=== PATIENT | male | born 1955 | race Caucasian/White ===

== ENCOUNTER → 2017-01-24 | Outpatient (CLI) | payer BC ==
[2014-07-04 12:50] VITALS: BP 137/76
[~2017-01-24] MED LIST: ASPI325T8 PO; CLOP75TA57 PO; DILT240C4 PO; DOXY100T PO; HYDR4TAB45 PO; MORP45CP4 PO; OXYC-323 PO; PRED2.5T PO
--- NOTE | 2017-01-24 17:00 | RAD ---
Left lower extremity arterial ultrasound, 01/24/2017: History: Foot pain, peripheral vascular disease Duplex evaluation of the major arteries in the left lower extremity was performed including grayscale, color-flow and spectral Doppler analysis. The left common femoral artery demonstrates a biphasic Doppler waveform. There is mild atherosclerotic plaquing. The patient's cowlitz superficial femoral artery is occluded in the upper thigh. There is a patent femoral-popliteal graft there is biphasic and triphasic blood flow within the graft. The left popliteal artery demonstrates good triphasic blood flow. There are mild to moderate scattered atherosclerotic plaques in the lower leg arteries. Patent posterior tibial, peroneal and anterior tibial arteries are present demonstrating triphasic Doppler waveforms. There is a mild velocity acceleration in the left anterior tibial artery up to 120 cm/s suggesting moderate narrowing of that vessel. The left dorsalis pedis demonstrates good triphasic Doppler blood flow. IMPRESSION: 1. Occlusion of the left superficial femoral artery. 2. Patent left femoral-popliteal graft providing good triphasic blood flow to the left lower leg and foot.
== END | disposition home or self-care (01) ==
LOC: US 14:55
PROVIDERS: ATTEND Family Medicine
DX: I73.9 Peripheral vascular disease, unspecified (principal); M79.672 Pain in left foot; I74.8 Embolism and thrombosis of other arteries; I70.8 Atherosclerosis of other arteries
CPT/HCPCS: 93926

== ENCOUNTER → 2017-05-08 | Outpatient (CLI) | payer BC ==
[2014-07-04 12:50] VITALS: BP 137/76
== END | disposition home or self-care (01) ==
LOC: PMGWOUND 10:29
PROVIDERS: ATTEND Emergency Medicine Undersea and Hyperbaric Medicine
DX: I70.235 Atherosclerosis of native arteries of right leg with ulceration of other part of foot (principal); L97.522 Non-pressure chronic ulcer of other part of left foot with fat layer exposed; I48.91 Unspecified atrial fibrillation; M86.8X7 Other osteomyelitis, ankle and foot; F17.210 Nicotine dependence, cigarettes, uncomplicated
CPT/HCPCS: 87205; 97597

== ENCOUNTER → 2017-05-21 | Outpatient (CLI) | payer BC ==
[2014-07-04 12:50] VITALS: BP 137/76
== END | disposition home or self-care (01) ==
LOC: PMGWOUND 09:30
PROVIDERS: ATTEND Preventive Medicine Undersea and Hyperbaric Medicine
DX: I70.235 Atherosclerosis of native arteries of right leg with ulceration of other part of foot (principal); L97.522 Non-pressure chronic ulcer of other part of left foot with fat layer exposed; I48.91 Unspecified atrial fibrillation; F17.210 Nicotine dependence, cigarettes, uncomplicated; M86.8X7 Other osteomyelitis, ankle and foot; Z89.422 Acquired absence of other left toe(s)
CPT/HCPCS: 11042

== ENCOUNTER → 2017-05-27 | Outpatient (CLI) | payer BC ==
[2014-07-04 12:50] VITALS: BP 137/76
[~2017-05-27] MED LIST changes: +GADOBUTROL 7.5 MMOL/7.5 ML VIAL IV ONE
--- NOTE | 2017-05-27 16:23 | KCIC ---
MR of the left foot with and without contrast HISTORY: Nonhealing wound at the lateral plantar surface of the fifth digit. TECHNIQUE: Routine multiplanar sequences before and after intravenous contrast. COMPARISON: January 17, 2017. FINDINGS: Mild generalized soft tissue edema of the visualized foot, greatest dorsally. No evidence of organized fluid collection or drainable abscess. No evidence of aggressive bone destruction or acute osteomyelitis. No evidence of acute fracture. No significant joint effusion. The tendons are intact. No significant tendon sheath fluid. Lisfranc ligament complex is intact as is tarsometatarsal alignment. IMPRESSION: No evidence of acute osteomyelitis or drainable abscess. Electronically signed by: Eduar Hathaway MD (05/27/2017 4:20 PM) [facility]
== END | disposition home or self-care (01) ==
LOC: KCIC MRI 15:05
PROVIDERS: ATTEND Emergency Medicine Undersea and Hyperbaric Medicine
DX: S91.302A Unspecified open wound, left foot, initial encounter (principal); R60.0 Localized edema; Z79.01 Long term (current) use of anticoagulants; Z87.891 Personal history of nicotine dependence; X58.XXXA Exposure to other specified factors, initial encounter; Y93.89 Activity, other specified; Y92.89 Other specified places as the place of occurrence of the external cause; Y99.8 Other external cause status
CPT/HCPCS: 73720

== ENCOUNTER → 2017-05-28 | Outpatient (CLI) | payer BC ==
[2014-07-04 12:50] VITALS: BP 137/76
[~2017-05-28] MED LIST changes: -GADOBUTROL 7.5 MMOL/7.5 ML VIAL IV ONE
== END | disposition home or self-care (01) ==
LOC: PMGWOUND 09:34
PROVIDERS: ATTEND Preventive Medicine Undersea and Hyperbaric Medicine
DX: I70.235 Atherosclerosis of native arteries of right leg with ulceration of other part of foot (principal); L97.522 Non-pressure chronic ulcer of other part of left foot with fat layer exposed; I48.91 Unspecified atrial fibrillation; F17.210 Nicotine dependence, cigarettes, uncomplicated; M86.68 Other chronic osteomyelitis, other site; Z89.422 Acquired absence of other left toe(s)
CPT/HCPCS: 99214

== ENCOUNTER → 2017-06-04 | Outpatient (CLI) | payer BC ==
[2014-07-04 12:50] VITALS: BP 137/76
== END | disposition home or self-care (01) ==
LOC: PMGWOUND 09:34
PROVIDERS: ATTEND Preventive Medicine Undersea and Hyperbaric Medicine
DX: I70.245 Atherosclerosis of native arteries of left leg with ulceration of other part of foot (principal); E11.621 Type 2 diabetes mellitus with foot ulcer; L97.522 Non-pressure chronic ulcer of other part of left foot with fat layer exposed; E11.69 Type 2 diabetes mellitus with other specified complication; M86.8X7 Other osteomyelitis, ankle and foot; I48.91 Unspecified atrial fibrillation; F17.210 Nicotine dependence, cigarettes, uncomplicated; Z89.422 Acquired absence of other left toe(s); Z79.01 Long term (current) use of anticoagulants
CPT/HCPCS: 99213

== ENCOUNTER → 2017-06-11 | Outpatient (CLI) | payer BC ==
[2014-07-04 12:50] VITALS: BP 137/76
== END | disposition home or self-care (01) ==
LOC: PMGWOUND 09:21
PROVIDERS: ATTEND Preventive Medicine Undersea and Hyperbaric Medicine
DX: I70.245 Atherosclerosis of native arteries of left leg with ulceration of other part of foot (principal); E11.621 Type 2 diabetes mellitus with foot ulcer; L97.522 Non-pressure chronic ulcer of other part of left foot with fat layer exposed; I70.235 Atherosclerosis of native arteries of right leg with ulceration of other part of foot; L97.511 Non-pressure chronic ulcer of other part of right foot limited to breakdown of skin; E11.69 Type 2 diabetes mellitus with other specified complication; M86.8X7 Other osteomyelitis, ankle and foot; I48.91 Unspecified atrial fibrillation; F17.210 Nicotine dependence, cigarettes, uncomplicated; Z89.422 Acquired absence of other left toe(s); Z79.01 Long term (current) use of anticoagulants
CPT/HCPCS: 99214

== ENCOUNTER → 2017-06-18 | Outpatient (CLI) | payer BC ==
[2014-07-04 12:50] VITALS: BP 137/76
== END | disposition home or self-care (01) ==
LOC: PMGWOUND 09:25
PROVIDERS: ATTEND Preventive Medicine Undersea and Hyperbaric Medicine
DX: I70.245 Atherosclerosis of native arteries of left leg with ulceration of other part of foot (principal); E11.621 Type 2 diabetes mellitus with foot ulcer; L97.522 Non-pressure chronic ulcer of other part of left foot with fat layer exposed; I70.235 Atherosclerosis of native arteries of right leg with ulceration of other part of foot; I70.511 Atherosclerosis of nonautologous biological bypass graft(s) of the extremities with intermittent claudication, right leg; E11.69 Type 2 diabetes mellitus with other specified complication; M86.679 Other chronic osteomyelitis, unspecified ankle and foot; I48.91 Unspecified atrial fibrillation; F17.210 Nicotine dependence, cigarettes, uncomplicated; Z89.422 Acquired absence of other left toe(s); Z79.01 Long term (current) use of anticoagulants
CPT/HCPCS: 99214

== ENCOUNTER → 2017-06-25 | Outpatient (CLI) | payer BC | END | disposition home or self-care (01) | LOC: PMGWOUND 09:32 | DX: I70.235 Atherosclerosis of native arteries of right leg with ulceration of other part of foot (principal); L97.522 Non-pressure chronic ulcer of other part of left foot with fat layer exposed; M86.679 Other chronic osteomyelitis, unspecified ankle and foot; I48.91 Unspecified atrial fibrillation; F17.210 Nicotine dependence, cigarettes, uncomplicated; Z89.422 Acquired absence of other left toe(s); Z79.01 Long term (current) use of anticoagulants | CPT/HCPCS: 97597 ==

== ENCOUNTER → 2017-07-02 | Outpatient (CLI) | payer BC | END | disposition home or self-care (01) | LOC: PMGWOUND 09:22 | DX: I70.245 Atherosclerosis of native arteries of left leg with ulceration of other part of foot (principal); E11.621 Type 2 diabetes mellitus with foot ulcer; L97.522 Non-pressure chronic ulcer of other part of left foot with fat layer exposed; I70.235 Atherosclerosis of native arteries of right leg with ulceration of other part of foot; L97.512 Non-pressure chronic ulcer of other part of right foot with fat layer exposed; E11.69 Type 2 diabetes mellitus with other specified complication; M86.679 Other chronic osteomyelitis, unspecified ankle and foot; I48.91 Unspecified atrial fibrillation; F17.210 Nicotine dependence, cigarettes, uncomplicated; Z89.422 Acquired absence of other left toe(s); Z79.01 Long term (current) use of anticoagulants | CPT/HCPCS: 97597 ==

== ENCOUNTER → 2017-07-18 | Outpatient (CLI) | payer BC | END | disposition home or self-care (01) | LOC: PMGWOUND 11:03 | DX: I70.245 Atherosclerosis of native arteries of left leg with ulceration of other part of foot (principal); E11.621 Type 2 diabetes mellitus with foot ulcer; L97.522 Non-pressure chronic ulcer of other part of left foot with fat layer exposed; I70.235 Atherosclerosis of native arteries of right leg with ulceration of other part of foot; L97.512 Non-pressure chronic ulcer of other part of right foot with fat layer exposed; I48.91 Unspecified atrial fibrillation; E11.69 Type 2 diabetes mellitus with other specified complication; M86.679 Other chronic osteomyelitis, unspecified ankle and foot; F17.210 Nicotine dependence, cigarettes, uncomplicated; Z89.422 Acquired absence of other left toe(s); Z79.01 Long term (current) use of anticoagulants | CPT/HCPCS: 97597 ==

== ENCOUNTER → 2017-08-01 | Outpatient (CLI) | payer BC | END | disposition home or self-care (01) | LOC: PMGWOUND 10:50 | DX: I70.235 Atherosclerosis of native arteries of right leg with ulceration of other part of foot (principal); E11.621 Type 2 diabetes mellitus with foot ulcer; L97.512 Non-pressure chronic ulcer of other part of right foot with fat layer exposed; I70.245 Atherosclerosis of native arteries of left leg with ulceration of other part of foot; L97.522 Non-pressure chronic ulcer of other part of left foot with fat layer exposed; E11.69 Type 2 diabetes mellitus with other specified complication; M86.679 Other chronic osteomyelitis, unspecified ankle and foot; L84 Corns and callosities; I48.91 Unspecified atrial fibrillation; F17.210 Nicotine dependence, cigarettes, uncomplicated; Z89.422 Acquired absence of other left toe(s); Z79.01 Long term (current) use of anticoagulants | CPT/HCPCS: 97597 ==

== ENCOUNTER → 2017-08-22 | Outpatient (CLI) | payer BC | END | disposition home or self-care (01) | LOC: PMGWOUND 10:53 | DX: I70.235 Atherosclerosis of native arteries of right leg with ulceration of other part of foot (principal); E11.621 Type 2 diabetes mellitus with foot ulcer; L97.512 Non-pressure chronic ulcer of other part of right foot with fat layer exposed; I70.245 Atherosclerosis of native arteries of left leg with ulceration of other part of foot; L97.522 Non-pressure chronic ulcer of other part of left foot with fat layer exposed; E11.69 Type 2 diabetes mellitus with other specified complication; M86.679 Other chronic osteomyelitis, unspecified ankle and foot; L84 Corns and callosities; I48.91 Unspecified atrial fibrillation; F17.210 Nicotine dependence, cigarettes, uncomplicated; Z89.422 Acquired absence of other left toe(s); Z79.01 Long term (current) use of anticoagulants | CPT/HCPCS: 97597 ==

== ENCOUNTER → 2017-09-05 | Outpatient (CLI) | payer BC | END | disposition home or self-care (01) | LOC: PMGWOUND 10:52 | DX: I70.245 Atherosclerosis of native arteries of left leg with ulceration of other part of foot (principal); E11.621 Type 2 diabetes mellitus with foot ulcer; L97.522 Non-pressure chronic ulcer of other part of left foot with fat layer exposed; E11.69 Type 2 diabetes mellitus with other specified complication; M86.679 Other chronic osteomyelitis, unspecified ankle and foot; L84 Corns and callosities; I48.91 Unspecified atrial fibrillation; F17.210 Nicotine dependence, cigarettes, uncomplicated; Z89.422 Acquired absence of other left toe(s); Z79.01 Long term (current) use of anticoagulants | CPT/HCPCS: 97597 ==

== ENCOUNTER → 2017-09-19 | Outpatient (CLI) | payer BC | END | disposition home or self-care (01) | LOC: PMGWOUND 11:00 | DX: I70.245 Atherosclerosis of native arteries of left leg with ulceration of other part of foot (principal); E11.621 Type 2 diabetes mellitus with foot ulcer; L97.522 Non-pressure chronic ulcer of other part of left foot with fat layer exposed; E11.69 Type 2 diabetes mellitus with other specified complication; M86.679 Other chronic osteomyelitis, unspecified ankle and foot; L84 Corns and callosities; I48.91 Unspecified atrial fibrillation; F17.210 Nicotine dependence, cigarettes, uncomplicated; Z89.422 Acquired absence of other left toe(s); Z79.01 Long term (current) use of anticoagulants | CPT/HCPCS: 97597; 99214 ==

== ENCOUNTER → 2017-09-26 | Outpatient (CLI) | payer BC | END | disposition home or self-care (01) | LOC: PMGWOUND 10:56 | DX: I70.235 Atherosclerosis of native arteries of right leg with ulceration of other part of foot (principal); L97.522 Non-pressure chronic ulcer of other part of left foot with fat layer exposed; I48.91 Unspecified atrial fibrillation; F17.210 Nicotine dependence, cigarettes, uncomplicated; E11.69 Type 2 diabetes mellitus with other specified complication; M86.68 Other chronic osteomyelitis, other site; Z89.422 Acquired absence of other left toe(s) | CPT/HCPCS: 97597 ==

== ENCOUNTER → 2017-10-03 | Outpatient (CLI) | payer BC | END | disposition home or self-care (01) | LOC: PMGWOUND 10:55 | DX: I70.245 Atherosclerosis of native arteries of left leg with ulceration of other part of foot (principal); E11.621 Type 2 diabetes mellitus with foot ulcer; L97.522 Non-pressure chronic ulcer of other part of left foot with fat layer exposed; E11.69 Type 2 diabetes mellitus with other specified complication; M86.679 Other chronic osteomyelitis, unspecified ankle and foot; L84 Corns and callosities; I48.91 Unspecified atrial fibrillation; F17.210 Nicotine dependence, cigarettes, uncomplicated; Z89.422 Acquired absence of other left toe(s); Z79.01 Long term (current) use of anticoagulants | CPT/HCPCS: 97597 ==

== ENCOUNTER → 2017-10-10 | Outpatient (CLI) | payer BC | END | disposition home or self-care (01) | LOC: PMGWOUND 10:55 | DX: I70.245 Atherosclerosis of native arteries of left leg with ulceration of other part of foot (principal); E11.621 Type 2 diabetes mellitus with foot ulcer; L97.522 Non-pressure chronic ulcer of other part of left foot with fat layer exposed; E11.69 Type 2 diabetes mellitus with other specified complication; M86.679 Other chronic osteomyelitis, unspecified ankle and foot; L84 Corns and callosities; I48.91 Unspecified atrial fibrillation; F17.210 Nicotine dependence, cigarettes, uncomplicated; Z89.422 Acquired absence of other left toe(s); Z79.01 Long term (current) use of anticoagulants | CPT/HCPCS: 97597 ==

== ENCOUNTER → 2017-10-31 | Outpatient (CLI) | payer BC | END | disposition home or self-care (01) | LOC: PMGWOUND 08:36 | DX: I70.245 Atherosclerosis of native arteries of left leg with ulceration of other part of foot (principal); E11.621 Type 2 diabetes mellitus with foot ulcer; L97.522 Non-pressure chronic ulcer of other part of left foot with fat layer exposed; E11.69 Type 2 diabetes mellitus with other specified complication; M86.679 Other chronic osteomyelitis, unspecified ankle and foot; L84 Corns and callosities; I48.91 Unspecified atrial fibrillation; F17.210 Nicotine dependence, cigarettes, uncomplicated; Z89.422 Acquired absence of other left toe(s); Z79.01 Long term (current) use of anticoagulants | CPT/HCPCS: 99212 ==

== ENCOUNTER → 2021-02-19 | Outpatient (CLI) | payer BC ==
[2014-07-04 12:50] VITALS: BP 137/76
[~2021-02-19] MED LIST changes: -OXYC-323 PO; +OXYC1TAB15 PO
--- NOTE | 2021-02-19 14:56 | RAD ---
Left lower extremity arterial duplex ultrasound 02/19/2021 INDICATION: Left lower extremity/foot pain Discussion: Ultrasound evaluation of the major arteries of the left lower extremity was performed including color Doppler imaging spectral analysis. Patient reports a complex surgical history including a bypass pro cedure, and stenting. Patient also reports a palpable mass in the proximal, medial left thigh which i s unchanged for several years. No focal pain or tenderness is identified. No identifiable change, acc ording to the patient, is present. Postoperative changes and scarring somewhat limited evaluation left groin. What appears to be a stent or graft in the expected region of the common femoral artery is seen. The profunda arteries poorly v isualized, though appears be grossly patent. What appears to be a bypass graft arising from the expec david distal common femoral artery is seen. Within the proximal thigh there is a focal area surrounding the graft, with echogenic thrombus suggesting subacute or chronic thrombosis. The ectasia measures u p to 2 cm in diameter relative to the graft diameter of approximately 9 mm. The distal aspect of the graft is patent. There appears to be an anastomosis with the proximal popliteal artery. The anastomos is appears to demonstrate sonographic patency, but is poorly evaluated. The ione SFA is chronically occluded. Monophasic flow seen within the distal posterior tibial peroneal, and anterior tibial dilip ace. Biphasic flow seen within the dorsalis pedis artery. Extensive tibial vessel calcification is s een. IMPRESSION: 1. Femoral popliteal bypass graft appears to be grossly patent with focal area of ectasia, and appear s to be chronic hematoma surrounding the graft. This is unchanged over many years according to the pa tient. 2. What appears to be a stent involving the common femoral artery and/or proximal aspect of the graft . This is grossly patent. Correlate with surgical history. 3. Poor visualization of the distal graft/popliteal artery anastomosis. Heavily calcified tibial vess els demonstrate monophasic flow. 4. Given study limitations and complex surgical history, consider CT angiography for further characte rization. Electronically signed by: Cain Keene MD (02/19/2021 2:54 PM) [id number]
== END ==
LOC: US 09:46
PROVIDERS: ATTEND Family Medicine
DX: I70.202 Unspecified atherosclerosis of native arteries of extremities, left leg (principal); R60.0 Localized edema; Z98.890 Other specified postprocedural states
CPT/HCPCS: 93926

== ENCOUNTER 2021-04-12 07:01 | Outpatient (CLI) | payer BC ==
[2021-04-12] VITALS (14 sets, daily range): BP systolic 119–166; BP diastolic 61–92
[~2021-04-12] VITALS: Ht 182.9 cm; Wt 63.6 kg
[2021-04-12] MEDS ORDERED: LIDOCAINE 1% Multi-Dose 20 ML VIAL. ONE (07:36)
[2021-04-12] MEDS ORDERED: IODIXANOL 320 MG/ML 100 ML VIAL. ONE (07:36)
[2021-04-12] MEDS ORDERED: HYDR-2761 PO (07:43)
[2021-04-12] MEDS ORDERED: TRIA1CAP3 PO (07:43)
[2021-04-12 07:59] LABS: RED BLOOD COUNT 5.04 x10^6/uL (4.30-5.70); WHITE BLOOD COUNT 5.1 x10^3/uL (4.0-11.0)
[2021-04-12 08:00] LABS: HEMATOCRIT 48.7 % (39.0-53.0); HEMOGLOBIN 16.4 g/dL (13.0-17.5); RED CELL DISTRIBUTION WIDTH 12.9 % (11.5-14.5)
--- NOTE | 2021-04-12 08:00 | NUR ---
Pretreatment for Iodine allergy called in to pharmacy by Dr Daniel office, pt took 2 doses of prednisone with the last dose at 0630 with benadryl. JAKE RN
[2021-04-12 08:08] LABS: CALCIUM 9.2 mg/dL (8.5-10.1); GFR 75.2; POTASSIUM 3.6 mmol/L (3.5-5.1)
[2021-04-12] MEDS ORDERED: MIDAZOLAM HCL/PF 5 MG/5 ML VIAL. ONE (08:22)
[2021-04-12] MEDS ORDERED: fentaNYL PF VIAL 250 MCG/5 ML VIAL ONE (08:22)
[2021-04-12] MEDS ORDERED: HEPARIN for IV BOLUS 10,000 UNIT/10 ML VIAL. ONE (08:22)
[2021-04-12] MEDS ORDERED: ACETAMINOPHEN 325 MG TABLET. PO PRN (08:30)
[2021-04-12] MEDS ORDERED: 0.9 % SODIUM CHLORIDE 10 ML DISP.SYRIN. IV PRN (08:30)
[2021-04-12] MEDS ORDERED: ACET325T21 PO (08:43)
--- NOTE | 2021-04-12 08:46 | DISCH ---
DISCHARGE INSTRUCTIONS Condition on Discharge Condition on Discharge: Stable Activity After Discharge Activity Instructions for Disc: Resume previous activity, Activity as tolerated Bathing Instructions: Shower-keep dressing dry (remove dressing in 2 days) Driving Instructions after Dis: Do not drive (for 24 hours following procedure) Weight Bearing Status after Di: As tolerated Diet after Discharge Diet after Discharge: Cardiac Diet Texture: Regular Contacting the DRChavo after DC Call your doctor for: If your condition worsens Follow-Up Follow up with: call for follow up appointment [phone] CHAR GUIDRY APRN Apr 12, 2021 08:46
[2021-04-12] MEDS ORDERED: IOHEXOL 350 MG/ML 100 ML VIAL. IART ONE (09:00)
[2021-04-12] MEDS ORDERED: fentaNYL PF VIAL 250 MCG/5 ML VIAL IV ONE (09:00)
[2021-04-12] MEDS ORDERED: MIDAZOLAM HCL/PF 5 MG/5 ML VIAL. IV ONE (09:00)
[2021-04-12] MEDS ORDERED: LIDOCAINE 1% Multi-Dose 20 ML VIAL. INJ ONE (09:00)
[2021-04-12] MEDS ORDERED: fentaNYL PF VIAL 100 MCG/2 ML VIAL ONE (09:49)
[2021-04-12] MEDS ORDERED: IODIXANOL 320 MG/ML 100 ML VIAL. IV ONE (10:00)
[2021-04-12] MEDS ORDERED: diphenhydrAMINE 50 MG/ML VIAL ONE (10:14)
[2021-04-12] MEDS ORDERED: fentaNYL PF VIAL 100 MCG/2 ML VIAL IV ONE (10:15)
--- NOTE | 2021-04-12 10:57 | OP ---
DATE OF SURGERY: 04/12/2021 VASCULAR SURGERY OPERATIVE REPORT ATTENDING SURGEON: King Daniel DO PREOPERATIVE DIAGNOSIS: Atherosclerosis with left lower extremity claudication. POSTOPERATIVE DIAGNOSIS: Atherosclerosis with left lower extremity claudication. PROCEDURE: 1. Percutaneous endovascular balloon angioplasty of the left anterior tibial artery using a 1.5 as well as a 2 mm angioplasty balloon (CPT code 73141). 2. Abdominal aortogram (CPT code 45243-05). 3. Selective left lower extremity angiogram (CPT code 50030-91). 4. Moderate sedation for the initial 15 minutes (CPT code 02283). 5. Moderate sedation for the subsequent 15 minutes for a total procedure time of 116 minutes (CPT code 68695). 6. Ultrasound-guided access of the right common femoral artery (CPT code 76724-23). 7. Right common femoral artery StarClose. ANESTHESIA: Local with moderate sedation for a total moderate sedation time of 116 minutes. Total Versed 5 mg, total fentanyl 325 mcg and 50 mg of Benadryl. COMPLICATIONS: None. SPECIMENS: None. ESTIMATED BLOOD LOSS: Minimal. PREOPERATIVE INDICATIONS: The patient is a 66-year-old male who is an active smoker who continues to smoke a pack per day despite multiple bilateral lower extremity reconstructions as well as lower extremity amputations. The patient was seen by our nurse practitioner and consented for angiography given the drop in his ankle brachial index on the left lower extremity to 0.40. He was consented for the procedure and understood all risks, benefits and alternatives of the procedure prior to proceeding. DESCRIPTION OF PROCEDURE: The patient was brought to the hybrid operating suite and placed in supine position. After establishing appropriate sedation, the right groin was prepped and draped in sterile fashion. Next, a timeout procedure was performed. It was confirmed that we checked the patient's laboratory values and we had all the instruments available within the room. Following this, using a sterile ultrasound probe, the right common femoral artery was directly visualized and then directly accessed after infiltrating 1% lidocaine using a micropuncture needle. The ultrasound-guided access was saved within the PACS imaging system to document access. Following this, a microwire was inserted and then a small skin incision was made. Needle was removed and a microsheath was inserted. Next, an 0.035 Bentson wire was inserted into the abdominal aorta under fluoro guidance. Following this, our microsheath was exchanged for a 5-[place]izen [place] short sheath, which was appropriately flushed. Next, the UF flush catheter was inserted into the level of L1 and then an abdominal aortogram was performed. The abdominal aortogram findings are as follows: The proximal, mid and distal abdominal aorta appear widely patent. The patient's aorta is circumferentially calcified. The right and left renal arteries are patent. There is a renal stent in the right renal artery, which appears patent. The right and left common iliac arteries are patent. The right and left external iliac arteries appear patent. The patient's left hypogastric artery fills at its origin, but then occludes. The right hypogastric artery appears occluded chronically. There is extensive reconstruction of the right and left common femoral arteries, which both appear patent. At this point in time, a catheter was pulled back to the aortic bifurcation and a selective left lower extremity angiogram was performed. The left lower extremity angiogram findings are as follows: The left common femoral artery reconstruction appears patent. There is a bypass from the femoral artery, which appears to be an interposition bypass down to a fem-pop bypass, which appears widely patent. The bypass is anastomosed to the above-knee popliteal artery at the level of the knee and that anastomosis is widely patent. The patient runs off and fills an above-knee popliteal artery, which appears fairly preserved. At this point, the tibioperoneal trunk appears chronically occluded. There is filling through collaterals which ultimately reconstitute the anterior tibial artery. This is the only vessel that fills to the level of the foot and ultimately into the dorsalis pedis artery. At this point in time, wire and catheter was used to access the left iliac system and I was able to gain wire access into the left lower extremity bypass. Next, a 5-[place] sheath was exchanged for a 45 cm 6-[place]izen [place] Destination sheath, which was positioned into the left femoral bypass. Next, the patient was heparinized per weight-based protocol. Following this, wire and catheter manipulation was used to advance the wire and catheter into the below-knee popliteal artery and engaged the anterior tibial artery. I was able to navigate across the chronically occluded segment in the anterior tibial artery and gain access to the anterior tibial artery with wire access confirmed in the dorsalis pedis artery. I placed 1.5 mm balloon followed by a 2 mm balloon and these areas were balloon angioplastied. I could not get my balloons beyond the midpoint of the anterior tibial artery due to very chronic disease in this location. I tried multiple attempts at different wires and catheters to try to get beyond this area, but I was only able to treat the first two-thirds of the anterior tibial artery, which is where the chronically occluded segment was. Satisfied with this result, then our wire and catheters were subsequently removed and our sheath was withdrawn into the right iliac system. The vessel was determined safe for closure. StarClose device was inserted and deployed successfully. The patient tolerated the procedure well and was transferred to the postanesthesia care unit in stable condition. DANYELL KUMAR: Alli TID: [id number]
--- NOTE | 2021-04-12 13:53 | NUR ---
PIV removed. Dressing at groin site dry, intact. No sign of bleeding or hematoma. Instructions provided on site care, sedation. Patient verbalized understanding. Patient's driving patient home. All belongings taken w/ patient at time of d/c. VS stable. No questions at time of d/c.
== END 2021-04-12 14:14 | disposition home or self-care (01) ==
LOC: CCL 07:01
PROVIDERS: ATTEND Surgery
DX: I73.9 Peripheral vascular disease, unspecified (principal); I10 Essential (primary) hypertension; I48.91 Unspecified atrial fibrillation; F17.210 Nicotine dependence, cigarettes, uncomplicated; Z79.82 Long term (current) use of aspirin; Z79.899 Other long term (current) drug therapy; Z98.890 Other specified postprocedural states; Z91.041 Radiographic dye allergy status; Z91.040 Latex allergy status; Z88.8 Allergy status to other drugs, medicaments and biological substances
CPT/HCPCS: 36415; 37228; 75625; 75710; 76937; 80048; 85027; 87426; 99152; 99153; C1725; C1760; C1769; C1894; J1644; J2250; J3010; J3490; Q9967; G0269

== ENCOUNTER → 2021-09-27 | Outpatient (CLI) | payer BC ==
[2021-04-12 13:30] VITALS: BP 141/72
[~2021-09-27] MED LIST changes: +ACET325T21 PO; +HYDR-2761 PO; +REGADENOSON 0.4 MG/5 ML DISP.SYRIN. IV ONE; +TRIA1CAP3 PO
--- NOTE | 2021-09-27 13:56 | RAD ---
MR#: [id number] Date of Study: 09/27/2021 Ordering Physician: ARLENE HALEY, Referring Physician: SADA VALDEZ Tech: RT Katerina (Pop) (N) APPROVED REPORT Test Type: Pharmacological Stress Nurse/Tech: AURE BUENROSTRO Test Indications: PREOPERATIVE CARDIOVASCULAR EXAMINATION Cardiac History: SEE EMR Medications: SEE EMR Medical History: SEE EMR Resting ECG: SR W/PAC'S Resting Heart Rate: 61 bpm Resting Blood Pressure: 127/64mmHg Pretest Chest Pain: No chest pain Nurse/Tech Notes S1,S2, LUNGS CTA, PT DENIED CHEST PAIN OR SHORTNESS OF BREATH AT THIS TIME. VSS. NO COMPLAINTS. Consent: The procedure was explained to the patient in lay terms. Informed consent was witnessed. Torin eout was entered into [employer]. History and Stress Test performed by RT Serafin Borges) (N) Pharm. Details Pharmacologic stress testing was performed using 0.4mg per 5ml of regadenoson given intravenously ove r 7-10 seconds. Stress Symptoms PT C/O OF A BRIEF EPISODE OF SHORTNESS OF BREATH, AFTER MEDICATION ADMINISTRATION. THAT RESOLVED, BUT THEN PT BECAME NAUSEATED. BY THE END OF TESTING PT STATED HE WAS BACK TO FEELING "NORMAL". VSS. NO F URTHER COMPLAINTS. POST EXERCISE Reason for Termination: Infusion complete Max HR: 118 bpm Max Blood Pressure: 145/67mmHg Blood Pressure response to exercise: Normal blood pressure response during stress. Heart Rate response to exercise: WNL Chest Pain: No. Arrhythmia: . NO SIGNIFICANT CHANGES NOTED FROM BASELINE EKG. INTERPRETATION Stress EKG Conclusion: Baseline EKG showed sinus rhythm. No ischemic changes at peak stress. No arr hythmias. Imaging Protocol IMAGE PROTOCOL: Rest Tc-99m/stress Tc-99m 1 day Rest: Stress: Viability: Radiopharm.Tc99m [id number] Sestamibi Unsg77uSf 33mCi Duration 13min. 13min. Img Date 09/27/2021 09/27/2021 Inj-Img Hywg00yau. 60min. Rest Admin Site:IV - Right AntecubitalAdministrator:RT Katerina (R)(N) Stress Admin Site: IV - Right AntecubitalAdministrator: RT Katerina (R)(N) STRESS DATA End Diast. Vol.92.0mlLVEDV index BSA52.0ml End Syst. Vol.24.0mlLVESV index BSA13.0ml Myocardial Vvtd415.0gEject. Emyertsh10.0% Stress Scores Regional WT0.00Summed WT2.00 Regional WM0.00Summed WM0.00 Study quality was good. Left Ventricular size was Normal at Rest and Stress. Lung uptake was . Left Ventricular ejection fraction is 71%. The rest and stress images show normal perfusion, normal contraction and thickening. LV Perf. Quant 17 Seg. SSS0.00 17 Seg. SRS4.00 17 Seg. SDS0.00 Stress Defect Extent (% LAD)0.00Rest Defect Extent (% LAD)0.00Rev. Defect Extent (% LAD)0.00 Stress Defect Extent (% LCX) 0.00Rest Defect Extent (% LCX)0.00Rev. Defect Extent (% LCX)0.00 Stress Defect Extent (% RCA)0.00Rest Defect Extent (% RCA)8.90Rev. Defect Extent (% RCA)0.00 Stress Defect Extent (% TERRANCE)0.00Rest Defect Extent (% TERRANCE)5.20Rev. Defect Extent (% TERRANCE)0.00 Conclusion 1. Regadenoson cardioisotope stress test did not show any evidence of ischemia or infarct. 2. Normal left ventricular systolic function with ejection fraction calculated at 71%. 3. Low risk for cardiac events. Signed by : Moreno Bobby, Electronically Approved : 09/27/2021 13:55:26
== END ==
LOC: NM 08:07
PROVIDERS: ATTEND Internal Medicine Cardiovascular Disease
DX: Z01.810 Encounter for preprocedural cardiovascular examination (principal)
CPT/HCPCS: 78452; 93017; A9500; J2785